=== PATIENT | female | born 1935 | race Caucasian/White ===

== ENCOUNTER → 2017-04-20 07:35 | Day surgery (SDC) | payer MEDICARE ==
[~2017-04-20 07:35] MED LIST: Buffered Lidocaine 0.9% SYRIN* 5 ML/SYR SYRINGE ONE; Bupivacaine 0.5% SDV PF* 30 ML VIAL ONE; Onabotulinimtoxina 100 UNITS* VIAL ONE
--- NOTE | 2017-04-21 00:37 | PRO ---
PROCEDURE REPORT: DATE OF PROCEDURE: 04/20/17 PROCEDURE: EMG-guided Botox injection into the right vocal cord with 5 units of Botox. DIAGNOSIS: Spasmodic dysphonia. DESCRIPTION OF PROCEDURE: This was done under local anesthesia with EMG guidance. The patient was in the local room. Her cricoid cartilage was demarcated and the injection site was demarcated over the cricothyroid membrane and injected with some buffered lidocaine. The ground and reference electrodes were placed on her skin. The Botox was loaded into an EMG injection needle, passed transcutaneously through the cricothyroid membrane superolaterally into the right true vocal cord and with phonation, proper EMG potentials were heard and she was injected with the 5 units of Botox. The patient tolerated the procedure well. No complications. [id number]/[facility] #: [id number] JANETT
== END | disposition home or self-care (01) ==
LOC: OR 07:35
PROVIDERS: ATTEND Otolaryngology
DX: J38.3 Other diseases of vocal cords (principal); J38.7 Other diseases of larynx; G25.0 Essential tremor; Z88.2 Allergy status to sulfonamides; Z88.5 Allergy status to narcotic agent; F44.9 Dissociative and conversion disorder, unspecified; Z87.891 Personal history of nicotine dependence
CPT/HCPCS: 31570; J0585

== ENCOUNTER → 2018-12-20 08:21 | Day surgery (SDC) | payer MEDICARE ==
[~2018-12-20 08:21] MED LIST changes: -Buffered Lidocaine 0.9% SYRIN* 5 ML/SYR SYRINGE ONE; -Bupivacaine 0.5% SDV PF* 30 ML VIAL ONE
[2018-12-20 09:36] VITALS: BP 161/73
--- NOTE | 2018-12-20 15:23 | OP ---
DATE OF OPERATION: 12/20/18 - SDS DATE OF : 39 SURGEON: Norbert Constantino MD PRE-OP DIAGNOSIS: Spasmodic dysphonia. POST-OP DIAGNOSIS: Spasmodic dysphonia. OPERATIVE PROCEDURE: EMG-guided Botox injection in the right true vocal cord with 7 units of Botox. DESCRIPTION OF PROCEDURE: The patient was in the local room. Her head was hyperextended. The cricoid cartilage and cricothyroid membrane were demarcated just to the right side of midline. 7 units of Botox was loaded into the EMG Botox injection needle and it was inserted through the skin and through the cricothyroid membrane supero-laterally into the right true vocal cord. She phonated "ee." I heard some rapid onset potentials, which was consistent with being in the complex and injected. Unfortunately, she thought she felt some squirting into the back of her throat. The EMG potentials were quite strong, verified by the EMG tech, so I opted not to reinject. She was instructed to call if she does not get the expected benefit. [id number]/[facility] #: [id number] [facility]ITAL[facility]
== END | disposition home or self-care (01) ==
LOC: OR 08:21
PROVIDERS: ATTEND Otolaryngology
DX: J38.7 Other diseases of larynx (principal); J38.3 Other diseases of vocal cords; G25.0 Essential tremor; Z87.891 Personal history of nicotine dependence
CPT/HCPCS: 64616; 95873; J0585

== ENCOUNTER 2019-01-05 10:56 | Emergency (ER) | payer MEDICARE ==
--- OUTSIDE RECORDS SUMMARY | 2019-01-05 11:02 | XMS REPORT | Continuity of Care Document ---
:1935 External Reference #:[id number] Author Name Norbert Constantino M.D. Address [address] [address] Care Team Providers Name Role Phone Lavinia LUCAS, Judi Primary Care Physician Unavailable Payers Date Identification Numbers Payment Provider Subscriber Policy Number: [id number] [facility] Sandi Camargo Group Number: [id number] [address] [address] PayID: [id number] [place] [address] Problems Active Problems Provider Date Psychologic conversion disorder Reilly Armando MD Onset: 02/05/2013 Essential tremor Norbert Constantino M.D. Onset: 05/13/2014 Disorder of the larynx Norbert Constantino M.D. Onset: 02/28/2013 Essential tremor Norbert Constantino M.D. Onset: 02/28/2013 Family History Date Family Member(s) Observation Comments General Heart Disease General High Blood Pressure General High Cholestrol Social History Type Date Description Comments Sex Unknown Occupation Retired Tobacco Use Start: Unknown End: Former Cigarette Smoker 1 x 8 years. quit at Unknown Pack Daily age 28 Tobacco Use Start: Unknown Never Smoked Cigars Tobacco Use Start: Unknown Never Smoked A Pipe Smokeless Tobacco Never Used Smokeless Tobacco ETOH Use Denies alcohol use Tobacco Use Start: Unknown End: Patient is a former Unknown smoker Smoking Status Reviewed: 12/17/18 Patient is a former smoker Allergies, Adverse Reactions, Alerts Active Allergies Reaction Severity Comments Date sulfa 01/31/2013 Percocet 01/31/2013 Medications Active Medications SIG Qnty Indications Ordering Provider Date Ambien 06/30 pill at [facility], 10mg M.D. Timolol Maleate Norbert Ponce, Ophthalmic Gel Forming XuDAntonio 0.5% GFS Escitalopram Oxalate Unknown 20mg Tablets Clonazepam 1 tablet as needed Delbert Jones 1mg Tablets M.DAntonio Multiple Vitamins daily Delbert Jones M.DAntonio Tablets Preservision Areds 2 as directed Delbert Jones Tena.Selam Areds 2 Capsules Lisinopril-Hydrochloro Judi Kate MD thiazide 10-12.5mg Tablets History Medications Cyclobenzaprine HCL 1 tab by mouth 30tabs Reilly Gallardo 04/07/2016 - 5mg Tablets every 8 hours as MD Tr 03/30/2017 needed for laryngeal spasm Lidocaine HCL (PF) Place 2 ml in 250ml Norbert Castro 02/17/2016 - 4% Solution nebulizer and Vira 03/30/2017 inhale 4 times a M.D. day as needed. Metoprolol Succinate ER Unknown - 25mg 03/30/2017 Tablets ER 24HR Pantoprazole Sodium Unknown - 40mg Tablets 03/30/2017 Chlorhexidine Gluconate Chad Chacko - 0.12% Dario 03/30/2017 Solution Hydrochlorothiazide 1 po qd Delbert Jones - 20mg Tablets Mich Bishop 12/18/2018 Zolpidem Tartrate Delbert Jones - 10mg Tablets Mich Bishop 03/30/2017 Klonopin 1 as needed G25.0 Bryce Murdock - 0.5mg Tablets se ETIQUETTE COACH 01/17/2018 Lexapro once po qd [facility] - 20mg M.DAntonio 03/30/2017 Imipramine HCL as directed [facility], - ?mg M.DAntonio 09/12/2013 Eye Drops Unknown - 02/28/2013 Vital Signs Date Vital Result Comment 12/18/2018 10:55am Weight 139.00 lb Weight 63.050 kg Height 65 inches 5'5" Height in cm's 165.1 cm BMI (Body Mass Index) 23.1 kg/m2 01/17/2018 2:23pm Weight 141.00 lb Weight 63.958 kg Height 65 inches 5'5" Height in cm's 165.1 cm BMI (Body Mass Index) 23.5 kg/m2 03/30/2017 1:55pm BP Systolic 154 mmHg BP Diastolic 76 mmHg Heart Rate 78 /min Respiratory Rate 18 /min Weight 141.00 lb Weight 63.958 kg Height 65 inches 5'5" Height in cm's 165.1 cm BMI (Body Mass Index) 23.5 kg/m2 02/16/2016 8:55am BP Systolic 167 mmHg BP Diastolic 77 mmHg Heart Rate 72 /min Respiratory Rate 17 /min Weight 136.00 lb Weight 61.690 kg Height 65 inches 5'5" Height in cm's 165.1 cm BMI (Body Mass Index) 22.6 kg/m2 05/13/2014 1:45pm BP Systolic 146 mmHg BP Diastolic 67 mmHg Heart Rate 82 /min Respiratory Rate 17 /min Weight 132.00 lb Weight 59.875 kg Height 65 inches 5'5" Height in cm's 165.1 cm BMI (Body Mass Index) 22.0 kg/m2 09/12/2013 1:18pm BP Systolic 121 mmHg BP Diastolic 81 mmHg Heart Rate 79 /min Respiratory Rate 16 /min Weight 145.00 lb Weight 65.772 kg Height 65 inches 5'5" Height in cm's 165.1 cm BMI (Body Mass Index) 24.1 kg/m2 02/28/2013 1:06pm Respiratory Rate 17 /min Weight 145.00 lb Weight 65.772 kg Height 65 inches 5'5" Height in cm's 165.1 cm BMI (Body Mass Index) 24.1 kg/m2 01/31/2013 2:57pm Respiratory Rate 16 /min Weight 145.00 lb Weight 65.772 kg Height 65 inches 5'5" Height in cm's 165.1 cm BMI (Body Mass Index) 24.1 kg/m2 Procedures Date Code Description Status 02/24/2018 84423 EMG Guidance for Chemodenervatio Completed 02/24/2018 19827 Chemodenervation Of Larynx Unilateral, Percutaneous, Completed Electromyogr 04/20/2017 41251 EMG Guidance for Chemodenervatio Completed 04/20/2017 87137 Chemodenervation Of Larynx Unilateral, Percutaneous, Completed Electromyogr 03/30/2017 76073 Fiberoptic Laryngoscopy Completed 09/12/2013 58180 Behavioral & Qualitative Analysis Of Voice & Resonance Completed 09/12/2013 57469 Behavioral & Qualitative Analysis Of Voice & Resonance Completed 09/12/2013 35636 Fiberoptic Laryngoscopy Completed 02/28/2013 29055 Eval Of Speech, Voice, Communicat Completed 02/28/2013 81850 Videostroboscopy Completed 01/31/2013 99873 Fiberoptic Laryngoscopy Completed Encounters Type Date Location Provider Dx Diagnosis Office Visit 12/18/2018 [place] Norbert Madsen38.7 Other diseases of 11:00a 06/27/07 [place] Constantino larynx Office Visit 01/17/2018 [place] Norbert Madsen38.7 Other diseases of 2:30p 06/27/07 D[place] Constantino larynx G25.0 Essential tremor S00.451A Superficial foreign body of right ear, initial encounter Office Visit 02/16/2016 [place],[facility] Norbert Castro G25.0 Essential 9:00a 06/27/07 Dario Constantino tremor J38.7 Other diseases of larynx Office Visit 05/13/2014 [place],[facility] Norbert Castro 333.1 Tremor, 1:45p 06/27/07 D[place] Constantino Essential (Benign) (Vocal) 478.79 Dysphonia, Spastica/Arthritis Cricothyroid Office Visit 01/31/2013 3:00p [place],[facility] Reilly Gallardo 300.11 Dysphonia, 06/27/07 MD Tr Functional Plan of Treatment 12/18/2018 - Norbert Constantino M.D.J38.7 Other diseases of larynxComments: The patient is for another EMG guided BOTOX injection. I will inject 7 U into her right TVC. She can continue with the Clonazepam as needed. It is used for tremor. She takes 1/4 tablet.She asked about CBD oil. I don't know enough about it to say whether it will help with this problem or not.
[2019-01-05 11:05] VITALS: BP 109/49
--- NOTE | 2019-01-05 12:10 | UC ---
General HPI - HPI Summary HPI Summary: Ms. Camargo has not felt well for for 5 days. She thinks she had a fever for 3 days. She has not had a fever for the last day or 2. Her throat is a little scratchy and she's had some generalized arthralgias and myalgias but otherwise has no specific symptoms. Yesterday she put her foot into a slipper and felt a sharp pain. She thinks it was a spider bite but she couldn't find a spider. Since then her toes of gotten erythematous and tender. - History of Current Complaint Chief Complaint: UCGeneralIllness Stated Complaint: BUG BITE Time Seen by Provider: 01/05/19 11:49 Hx Obtained From: Patient Onset/Duration: Sudden Onset, Gradual Onset Timing: Constant Onset Severity: Moderate Current Severity: Moderate Pain Intensity: 8 Associated Signs & Symptoms: Positive: Fever - Allergy/Home Medications Allergies/Adverse Reactions: Allergies Allergy/AdvReac Type Severity Reaction Status Date / Time alendronate sodium Allergy GI Upset Verified 01/05/19 11:05 Sulfa (Sulfonamide Allergy Unknown Verified 01/05/19 11:05 Antibiotics) Reaction Details Home Medications: Home Medications Multivitamin [Once Daily] 1 tbsp PO DAILY 01/05/19 [History Confirmed 01/05/19] PMH/Surg Hx/FS Hx/Imm Hx Previously Healthy: Yes Cardiovascular History: Hypertension - Surgical History Surgical History: Yes Surgery Procedure, Year, and Place: - Social History Alcohol Use: Rare Alcohol Amount: glass of wine 2-3 times/wk Substance Use Type: None Smoking Status (MU): Former Smoker Type: Cigarettes Have You Smoked in the Last Year: No When Did the Patient Quit Smoking/Using Tobacco: quit at age 29 Review of Systems All Other Systems Reviewed And Are Negative: Yes Constitutional: Positive: Fever, Chills, Fatigue Skin: Positive: Rash ENT: Positive: Sore Throat - a little scratchy Respiratory: Positive: Negative Musculoskeletal: Positive: Arthralgia, Myalgia Physical Exam - Summary Physical Exam Summary: She is nontoxic in appearance with stable vitals. Triage Information Reviewed: Yes Appearance: Well-Appearing Vital Signs: Initial Vital Signs Temp 97.5 F 01/05/19 11:00 Pulse 94 01/05/19 11:00 Resp 20 01/05/19 11:00 BP 109/49 01/05/19 11:00 Pulse Ox 98 01/05/19 11:00 Eyes: Positive: Conjunctiva Clear ENT: Positive: Normal ENT inspection Neck exam: Normal Neck: Positive: No Lymphadenopathy Respiratory Exam: Normal Respiratory: Positive: Lungs clear Cardiovascular Exam: Normal Abdomen Description: Positive: Nontender Musculoskeletal Exam: Normal Neurological Exam: Normal Skin Exam: Other - She is a dark erythematous area at the base of her fourth toe. There is nothing between her toes. She has a jacquard plate maker erythematous area extending proximally about 4 cm and laterally. Course/Dx - Course Course Of Treatment: I think she likely has a viral infection with nonspecific findings. She does look like she was bitten probably by a spider at the base of her fourth toe. She now has surrounding erythema of about 4 cm proximal. I'm going to treat her with doxycycline. - Diagnoses Provider Diagnosis: Wound infection Discharge - Sign-Out/Discharge Documenting (check all that apply): Patient Departure All imaging exams completed and their final reports reviewed: No Studies - Discharge Plan Condition: Stable Disposition: HOME Patient Education Materials: Wound Infection (ED) Referrals: Judi Kate MD [Primary Care Provider] - - Billing Disposition and Condition Condition: STABLE Disposition: Home
== END 2019-01-05 12:30 | disposition home or self-care (01) ==
LOC: UCEAST 10:56
DX: S90.466A Insect bite (nonvenomous), unspecified lesser toe(s), initial encounter (principal); W57.XXXA Bitten or stung by nonvenomous insect and other nonvenomous arthropods, initial encounter; Y92.9 Unspecified place or not applicable; I10 Essential (primary) hypertension; Z88.2 Allergy status to sulfonamides
CPT/HCPCS: 99212; G0463

== ENCOUNTER → 2019-04-04 | Day surgery (SDC) | payer MEDICARE ==
--- NOTE | 2019-04-04 22:57 | OP ---
DATE OF OPERATION: 04/04/19 - [facility] DATE OF : 39 SURGEON: Carlyle Constantino MD ANESTHESIA: None. PRE-OP DIAGNOSIS: Spasmodic dysphonia. POST-OP DIAGNOSIS: Spasmodic dysphonia. OPERATIVE PROCEDURE: EMG-guided Botox injection into the right vocal cord with 10 units of Botox. DESCRIPTION OF PROCEDURE: The patient was in a local room and her head was hyperextended. The cricoid cartilage and midline were demarcated and the injection site was marked over the cricothyroid membrane on the right side. 10 units of Botox was loaded into the EMG injection needle inserted through the skin superolaterally through the cricothyroid membrane into the right vocal cord. The proper EMG potentials were found and the 10 units of Botox were injected. The patient tolerated this well, no complications. [id number]/[facility] #: [id number] MTDD
== END | disposition home or self-care (01) ==
LOC: OR 09:58
PROVIDERS: ATTEND Otolaryngology
DX: J38.2 Nodules of vocal cords (principal); J38.7 Other diseases of larynx; G25.0 Essential tremor; F44.4 Conversion disorder with motor symptom or deficit; Z87.891 Personal history of nicotine dependence
CPT/HCPCS: 64616; 95873; J0585